=== PATIENT | female | born 1950 | race Caucasian/White ===

== ENCOUNTER 2018-11-21 01:33 | Emergency (ER) | payer MEDICARE, OTHER ==
[~2018-11-21] VITALS: Ht 170.2 cm; Wt 68.5 kg
--- NOTE | 2018-11-21 01:49 | NUR ---
PT BIBRA 85 FROM [facility] ST[facility] FOR C/O NON PRODDUCTIVE COUGH ALL DAY, AFEBRILE, VS STABLE, ON RM AIR, DENIES ANTY PAIN AT THIS TIME, PLACED ON ER BED 12, IMMEDIATELY SEEN AND EVAL DONE BY DR ALVAREZ, EKG AND XR CHEST ORDERED.
--- NOTE | 2018-11-21 02:40 | NUR ---
ekg and chest xray results obtained, dr Lemus aware, ok to dc pt, homeless packet with instructions provided and signed willing acknowledgement of information provided. Patient discharged to home in stable condition. Written and verbal after care instructions given. Patient verbalizes understanding of instruction.
[2018-11-21 02:43] VITALS: BP 105/68
== END 2018-11-21 02:44 | disposition home or self-care (01) ==
LOC: ER 01:33
DX: R05 Cough (principal); F17.200 Nicotine dependence, unspecified, uncomplicated; F10.10 Alcohol abuse, uncomplicated; Y90.9 Presence of alcohol in blood, level not specified
CPT/HCPCS: 93005; 99283; A4606